=== PATIENT | male | born 1960 | race Caucasian/White ===

== ENCOUNTER 2022-05-08 17:05 | Observation (INO) ==
[2022-05-08 17:41] LABS: Basophils % 0.4 % (0.0-0.8); Eosinophils % 0.1 % (0.00-10.9); Hematocrit 47.2 VOL% (42.0-52.0); Hemoglobin 16.3 GM/DL (14.0-18.0); Immature Granulocytes % 0.4 %; Immature Granulocytes Absolute 0.04 #; Lymphocytes # 0.8 10*3/uL (1.4-4.0); Lymphocytes % 8.4 % (21.2-54.2); Mean Corpuscular HGB Conc 34.5 GM/DL (32-36); Mean Corpuscular Volume 89.6 FL (87-102); Mean Platelet Volume 10.9 FL (9.6-12.0); Monocytes # 0.3 10*3/uL (0.11-0.8); Monocytes % 3.4 % (1.7-12.7); Neutrophils % 87.3 % (38.7-73.9); Platelet Count 225 T/CUMM (130-400); Red Blood Count 5.27 MC/CUMM (3.8-5.5); Red Cell Distribution Width 13.1 % (9.3-17.3); White Blood Count 8.9 T/CUMM (4-12)
[2022-05-08 17:51] LABS: PT Patient Result 11.4 SECS (10.1-12.1); Partial Thromboplastin Time 28.7 SECS (23.7-32.9)
[2022-05-08 18:02] LABS: Bilirubin,Total 2.4 MG/DL (0.20-1.00); Calcium 9.2 MG/DL (8.5-10.1); Osmolality,Calculated 275.8 MOS/KG (273-304); Potassium 4.1 MMOL/L (3.5-5.1); Total Protein 7.6 G/DL (6.4-8.2)
[2022-05-08] MEDS ORDERED: PANTOPRAZOLE 40 MG VIAL IV STA (18:19)
[2022-05-08] MEDS ORDERED: SODIUM CHLORIDE 0.9% 500 ML IV STA (18:19)
[2022-05-08] MEDS ORDERED: ENOXAPARIN 100 MG/ML SYRINGE SUBCUT STA (19:57)
[2022-05-08] MEDS ORDERED: ASPIRIN EC 325 MG TABLET PO STA (19:58)
[2022-05-08] MEDS ORDERED: hydrALAZINE 20 MG/1 ML VIAL IV PRN (20:00)
[2022-05-08] MEDS ORDERED: ONDANSETRON 4 MG/2 ML VIAL IV PRN (20:00)
[2022-05-08] MEDS ORDERED: ALUMINUM/MAGNES/SIMETH MAX STR 30 ML UDCUP PO PRN (20:00)
[2022-05-08] MEDS ORDERED: ENOXAPARIN 120 MG/0.8 ML SYRINGE SUBCUT STA (20:27)
[2022-05-08] MEDS: SODIUM CHLORIDE 0.9% 1,000 ML IV SCH (21:19)
[2022-05-08] MEDS: DOCUSATE SODIUM 100 MG CAPSULE PO SCH (21:22)
[2022-05-09 05:07] LABS: Basophils % 0.6 % (0.0-0.8); Eosinophils % 0.1 % (0.00-10.9); Hematocrit 40.7 VOL% (42.0-52.0); Hemoglobin 14.1 GM/DL (14.0-18.0); Immature Granulocytes % 0.3 %; Immature Granulocytes Absolute 0.02 #; Lymphocytes # 1.1 10*3/uL (1.4-4.0); Lymphocytes % 14.9 % (21.2-54.2); Mean Corpuscular HGB Conc 34.6 GM/DL (32-36); Mean Corpuscular Volume 89.5 FL (87-102); Mean Platelet Volume 11.3 FL (9.6-12.0); Monocytes # 0.6 10*3/uL (0.11-0.8); Monocytes % 7.9 % (1.7-12.7); Neutrophils % 76.2 % (38.7-73.9); Platelet Count 193 T/CUMM (130-400); Red Blood Count 4.55 MC/CUMM (3.8-5.5); Red Cell Distribution Width 13.2 % (9.3-17.3); White Blood Count 7.1 T/CUMM (4-12)
[2022-05-09 05:29] LABS: Albumin 3.3 G/DL (3.4-5.0); Bilirubin,Direct 0.37 MG/DL (0.0-0.20); Bilirubin,Indirect 1.7 MG/DL (0.0-1.0); Bilirubin,Total 2.1 MG/DL (0.20-1.00); Calcium 8.2 MG/DL (8.5-10.1); Potassium 3.5 MMOL/L (3.5-5.1); Risk Ratio 4.29; Total Protein 6.7 G/DL (6.4-8.2); VLDL Cholesterol 16.6 MG/DL
[2022-05-09] MEDS: LEVOTHYROXINE 100 MCG TABLET PO SCH (07:31)
[2022-05-09 07:45] LABS: % Iron Saturation 20.9 % (18-50)
[2022-05-09 08:22] LABS: Hepatitis B Core IgM Quant < 0.05 Index; Hepatitis B Surface Ag Quant < 0.10 Index; Hepatitis B Surface Ag Result Non-Reactive (NonReactive); Hepatitis C Virus Ab Quant 0.07 Index; Hepatitis C Virus Ab Result Non-Reactive (NonReactive)
[2022-05-09] MEDS ORDERED: PANTOPRAZOLE 40 MG VIAL IV SCH (09:00)
[2022-05-09] MEDS: DOCUSATE SODIUM 100 MG CAPSULE PO SCH ×2 (09:55→21:43)
[2022-05-09] MEDS: ASPIRIN EC 81 MG TABLET PO SCH (09:55)
[2022-05-09] MEDS: PANTOPRAZOLE 40 MG VIAL IV SCH ×2 (09:55→21:32)
[2022-05-09] MEDS: lisinopriL 10 MG TABLET PO SCH (09:55)
[2022-05-09] MEDS: SODIUM CHLORIDE 0.9% 1,000 ML IV SCH ×2 (09:56→21:35)
[2022-05-09 15:06] LABS: Bilirubin,Urine Negative (Negative); Blood, Urine Negative (Negative); Glucose,Urine (UA) Negative (Negative); Ketones,Urine Negative (Negative); Mucus,Urine Occasional /LPF (Occasional); Nitrite,Urine Negative (Negative); Protein,Urine Negative (Negative); RBC,Urine 2 /HPF (0-4); Urine Appearance Clear (Clear); Urine Color Yellow (Yellow); Urine Specific Gravity 1.015 (1.001-1.035); Urine Urobilinogen 0.2 eU/dL (<2.0)
[2022-05-09] MEDS ORDERED: MORPHINE 2 MG/1 ML SYRINGE IV PRN (15:40)
[2022-05-09] MEDS: ENOXAPARIN 40 MG/0.4 ML SYRINGE SUBCUT SCH (21:34)
[2022-05-09] MEDS: LOPERAMIDE 2 MG CAPSULE PO PRN (21:36)
[2022-05-10 05:33] LABS: Basophils % 0.7 % (0.0-0.8); Eosinophils # 0.2 10*3/uL (0.0-0.87); Eosinophils % 3.8 % (0.00-10.9); Hematocrit 40.8 VOL% (42.0-52.0); Hemoglobin 13.8 GM/DL (14.0-18.0); Immature Granulocytes % 0.4 %; Immature Granulocytes Absolute 0.02 #; Lymphocytes # 1.9 10*3/uL (1.4-4.0); Lymphocytes % 34.2 % (21.2-54.2); Mean Corpuscular HGB Conc 33.8 GM/DL (32-36); Mean Corpuscular Volume 91.3 FL (87-102); Mean Platelet Volume 11.2 FL (9.6-12.0); Monocytes # 0.9 10*3/uL (0.11-0.8); Monocytes % 16.8 % (1.7-12.7); Neutrophils % 44.1 % (38.7-73.9); Platelet Count 170 T/CUMM (130-400); Red Blood Count 4.47 MC/CUMM (3.8-5.5); Red Cell Distribution Width 13.5 % (9.3-17.3); White Blood Count 5.5 T/CUMM (4-12)
[2022-05-10 05:49] LABS: Albumin 3.2 G/DL (3.4-5.0); Bilirubin,Total 1.4 MG/DL (0.20-1.00); Calcium 8.1 MG/DL (8.5-10.1); Osmolality,Calculated 279.5 MOS/KG (273-304); Potassium 3.9 MMOL/L (3.5-5.1); Total Protein 6.4 G/DL (6.4-8.2)
[2022-05-10 06:03] LABS: Eosinophils 2 % (0-10); Lymphocytes 35 % (20-55); Platelet Estimate Adequate; Total Cells Counted 100
[2022-05-10] MEDS ORDERED: LACTATED RINGERS 1,000 ML IV SCH (07:30)
[2022-05-10] MEDS ORDERED: LIDOCAINE 2% 5 ML VIAL ONE (08:41)
[2022-05-10] MEDS ORDERED: propofoL 200 MG/20 ML VIAL IV ONE (08:41)
[2022-05-10] MEDS: DOCUSATE SODIUM 100 MG CAPSULE PO SCH ×2 (12:01→21:44)
[2022-05-10] MEDS: ASPIRIN EC 81 MG TABLET PO SCH (12:01)
[2022-05-10] MEDS: LEVOTHYROXINE 100 MCG TABLET PO SCH (12:01)
[2022-05-10] MEDS: lisinopriL 10 MG TABLET PO SCH (12:02)
[2022-05-10] MEDS: PANTOPRAZOLE 40 MG VIAL IV SCH ×2 (12:02→21:40)
[2022-05-10] MEDS: METOCLOPRAMIDE 10 MG/2 ML VIAL IV SCH ×2 (14:31→20:40)
[2022-05-10] MEDS: LOPERAMIDE 2 MG CAPSULE PO PRN (20:40)
[2022-05-10] MEDS: ENOXAPARIN 40 MG/0.4 ML SYRINGE SUBCUT SCH (21:45)
[2022-05-11] MEDS: METOCLOPRAMIDE 10 MG/2 ML VIAL IV SCH ×2 (03:40→09:02)
[2022-05-11 05:37] LABS: Basophils % 0.5 % (0.0-0.8); Eosinophils # 0.3 10*3/uL (0.0-0.87); Eosinophils % 4.9 % (0.00-10.9); Hematocrit 42.7 VOL% (42.0-52.0); Hemoglobin 14.4 GM/DL (14.0-18.0); Immature Granulocytes % 0.5 %; Immature Granulocytes Absolute 0.03 #; Lymphocytes % 33.9 % (21.2-54.2); Mean Corpuscular HGB Conc 33.7 GM/DL (32-36); Mean Corpuscular Volume 90.9 FL (87-102); Monocytes # 0.9 10*3/uL (0.11-0.8); Monocytes % 14.4 % (1.7-12.7); Neutrophils % 45.8 % (38.7-73.9); Platelet Count 187 T/CUMM (130-400); Red Cell Distribution Width 13.2 % (9.3-17.3); White Blood Count 5.9 T/CUMM (4-12)
[2022-05-11 06:04] LABS: Albumin 3.4 G/DL (3.4-5.0); Bilirubin,Total 1.7 MG/DL (0.20-1.00); Calcium 8.4 MG/DL (8.5-10.1); Osmolality,Calculated 277.5 MOS/KG (273-304); Potassium 3.8 MMOL/L (3.5-5.1); Total Protein 6.8 G/DL (6.4-8.2)
[2022-05-11] MEDS: LEVOTHYROXINE 100 MCG TABLET PO SCH (06:41)
[2022-05-11] MEDS: PANTOPRAZOLE 40 MG VIAL IV SCH (09:03)
[2022-05-11] MEDS: ASPIRIN EC 81 MG TABLET PO SCH (09:05)
[2022-05-11] MEDS: DOCUSATE SODIUM 100 MG CAPSULE PO SCH (09:05)
[2022-05-11] MEDS: lisinopriL 10 MG TABLET PO SCH (09:05)
[2022-05-11 11:59] VITALS: BP 137/75
== END 2022-05-12 09:06 | disposition home or self-care (01) ==
LOC: N.ED 17:05 → N.EDINP 17:05 → N.2W 23:24
PROVIDERS: ADMIT Internal Medicine; ATTEND Internal Medicine